=== PATIENT | female | born 1985 | race Hispanic/Latino ===

== ENCOUNTER 2017-01-13 13:18 | Emergency (ER) | payer BC, OTHER ==
[2017-01-13 13:43] VITALS: RESP 16; TEMP 98.8
[2017-01-13] MEDS ORDERED: Sodium Chloride 0.9% 1,000 ML IV STA (14:02)
[2017-01-13 14:17] LABS: URINE APPEARANCE CLEAR (CLEAR); URINE BILIRUBIN NEGATIVE (NEGATIVE); URINE BLOOD LARGE (NEGATIVE); URINE COLOR YELLOW (YELLOW); URINE GLUCOSE (UA) NEGATIVE (NEGATIVE); URINE KETONE TRACE mg/dL (NEGATIVE); URINE LEUKOCYTE ESTERASE NEGATIVE Leu/uL (NEGATIVE); URINE PROTEIN NEGATIVE mg/dL (<30 mg/dL); URINE UROBILINOGEN 0.2 E.U./dL (<1 E.U./dL)
[2017-01-13 14:17] LABS: BASO # 0.02 K/mm3 (0.0-2.0); BASO % 0.2 % (0.0-3.0); EOS # 0.1 (0.0-0.7); EOS % 1.2 % (1.5-5.0); GRAN # 5.84 (1.4-6.5); GRAN % 69.7 % (50.0-68.0); LYMPH % 23.8 % (22.0-35.0); MEAN CELL VOLUME 87.2 fl (80.0-105.0); MEAN CORPUSCULAR HGB CONC 34.4 g/dl (31.0-37.0); MEAN PLATELET VOLUME 9.9 fl (7.0-11.0); MONO # 0.4 (0.1-0.6); MONO % 5.1 % (1.0-6.0); RED CELL DISTRIBUTION WIDTH 12.3 % (11.5-14.5); WHITE BLOOD COUNT 8.4 10^3/ul (4.5-11.0)
[2017-01-13 14:25] LABS: URINE BACTERIA FEW (NEG)
[2017-01-13 14:29] LABS: ALB/GLOB RATIO 1.5 (1.1-1.8); ALKALINE PHOSPHATASE 39 U/L (38-126); ALT/SGPT 28 U/L (7-56); AST/SGOT 27 U/L (14-36); BILIRUBIN,TOTAL 1.4 mg/dL (0.2-1.3); BLOOD UREA NITROGEN 10 mg/dL (7-21); CALCIUM 9.5 mg/dL (8.4-10.5); CARBON DIOXIDE 27 mmol/L (21-33); CHLORIDE 104 mmol/L (98-107); GFR AFRICAN-AMERICAN > 60; GLUCOSE,RANDOM 86 mg/dL (70-110); LIPASE 181 U/L (23-300); POTASSIUM 3.5 mmol/L (3.6-5.0); SODIUM 140 mmol/L (132-148); TOTAL PROTEIN 7.7 g/dL (5.8-8.3)
[2017-01-13] MEDS ORDERED: Morphine 4 mg/ml ISec IVP STA (14:32)
--- NOTE | 2017-01-13 14:34 | ED PDOC ---
Arrival/HPI - General Historian: Patient EM Caveat: Acuity of Condition - History of Present Illness Front/Back of Body, Lg (Color): 1 - RLQ abdominal pain Symptom Onset: Sudden Symptom Course: Worsening Quality: Pressure, Throbbing Severity Level: 8 Activities at Onset: Light Context: Standing <SAMMY NORRIS - Last Filed: 01/13/17 14:22> <Irasema Juarez - Last Filed: 01/13/17 18:16> - General Chief Complaint: Abdominal Pain Time Seen by Provider: 01/13/17 13:48 - History of Present Illness Narrative History of Present Illness (Text): 31F with hx of right ovarian cysts, presents for RLQ abdominal pain x 8hrs. The pain started this morning, while pt was getting ready for work, describes it as constant, throbbing in nature, rates it as 8/10. It gets better with pt leaning forward; walking and sitting up makes the pain worse. Pt has associated nausea and decreased appetite since this AM. Denies fever, chills, vomiting, headache, back pain, dysuria, frequency, hematuria, vaginal discharge, BRBPR, melena, diarrhea/constipation. Pt was sent from her tipple tender office (Dr Pagan) to the ED. Pt is currently having her period, started this AM. However, pt states that her current pain is different from her usual cramps. PMH: right ovarian cysts (diagnosed 10/2016) PSH: ovarian cyst removal, 2006 (unsure which side) ALl: NKA FH: Father, at age 53 from [place]: lives with fiance. Denies alcohol, tobacco, drug use. Works in an office. 01/13/17 14:23 (SAMMY NORRIS) Associated Symptoms (Text): Has associated decreased appetite, nausea. 01/13/17 14:35 (SAMMY NORRIS) Past Medical History - Provider Review Nursing Documentation Reviewed: Yes - Psychiatric Hx Psychophysiologic Disorder: No Hx Substance Use: No - Surgical History Other/Comment: R/T OVARIAN CYST <SAMMY NORRIS - Last Filed: 01/13/17 14:22> Family/Social History - Physician Review Nursing Documentation Reviewed: Yes Smoking Status: Never Smoked Hx Alcohol Use: No Hx Substance Use: No <SAMMY NORRIS - Last Filed: 01/13/17 14:22> Family/Social History: No Known Family HX <Irasema Juarez - Last Filed: 01/13/17 18:16> Allergies/Home Meds <SAMMY NORRIS - Last Filed: 01/13/17 14:22> <JannaIrasema maldonado Joselin - Last Filed: 01/13/17 18:16> Allergies/Adverse Reactions: Allergies No Known Allergies Allergy (Verified 01/13/17 13:37) Home Medications: Home Meds Medication Instructions Recorded Confirmed No Known Home Med 01/13/17 01/13/17 Review of Systems - Physician Review All systems were reviewed & negative as marked: Yes <SAMMY NORRIS - Last Filed: 01/13/17 14:22> Physical Exam Vital Signs Reviewed: Yes Temperature: Afebrile Blood Pressure: Normal Pulse: Tachycardic Respiratory Rate: Normal Appearance: Positive for: Uncomfortable Pain Distress: Moderate Mental Status: Positive for: Alert and Oriented X 3 - Systems Exam Head: Present: Atraumatic, Normocephalic Pupils: Present: PERRL Extroacular Muscles: Present: EOMI Conjunctiva: Present: Normal Pharnyx: Present: Normal Neck: Present: Normal Range of Motion Respiratory/Chest: Present: Clear to Auscultation. No: Accessory Muscle Use Cardiovascular: Present: Normal S1, S2, Tachycardic. No: Murmurs Abdomen: Present: Tenderness, Guarding, McBurney's Point Tender, Rovsing's Sign Present, Other (RLQ tenderness). No: Distention Upper Extremity: Present: Normal Inspection. No: Edema, Tenderness Lower Extremity: Present: Normal Inspection. No: Edema, CALF TENDERNESS, Brenda' s Sign Neurological: Present: GCS=15, Speech Normal Skin: Present: Warm, Dry Psychiatric: Present: Alert, Oriented x 3, Normal Affect, Normal Mood <SAMMY NORRIS - Last Filed: 01/13/17 14:22> Vital Signs Temp Pulse Resp BP Pulse Ox 01/13/17 18:12 86 16 123/72 100 01/13/17 15:37 98 H 16 118/72 98 01/13/17 13:37 98.8 F 112 H 16 114/82 98 Medical Decision Making <JRSAMMY - Last Filed: 01/13/17 14:22> <Irasema Juarez Joselin - Last Filed: 01/13/17 18:16> ED Course and Treatment: 31F with hx of right ovarian cysts, presents for RLQ abdominal pain: - likely 2/2 appendicitis vs diverticulitis vs ovarian etiology vs renal stones vs UTI - CBC, CMP, lipase, HCG, UA - Abd/pelvis with IV contrast - Will consult surgery - F/u results 01/13/17 14:39 01/13/17 14:45 (SAMMY NORRIS) Patient seen by resident and then evaluated by me. Patient is presenting with RLQ pain. She reports that she developed her menses today and then developed isolated RLQ pain. Seen by travel occupational therapist Dr. Pagan who sent patient to ED for further evaluation. Mild tenderness on exam. Labs grossly normal. UA negative for leukocytes and nitrates. Poc negative. CT shows "LOWER THORAX: Unremarkable. LIVER: Unremarkable. No gross lesion or ductal dilatation. GALLBLADDER AND BILE DUCTS: Unremarkable. PANCREAS: Unremarkable. No gross lesion or ductal dilatation. SPLEEN: Unremarkable. ADRENALS: Unremarkable. No mass. KIDNEYS AND URETERS: Unremarkable. No hydronephrosis. No solid mass. VASCULATURE: Unremarkable. No aortic aneurysm. BOWEL: Unremarkable. No obstruction. No gross mural thickening. APPENDIX: Normal appendix. PERITONEUM: Unremarkable. No free fluid. No free air. LYMPH NODES: Unremarkable. No enlarged lymph nodes. BLADDER: Unremarkable. REPRODUCTIVE: Unremarkable. BONES: No acute fracture. OTHER FINDINGS: None. IMPRESSION: Unremarkable contrast enhanced CT of the abdomen and pelvis." 01/13/17 16:35 Spoke to patient's tipple tender. 01/13/17 18:00 U/S shows "UTERUS: Measures 8.8 x 4.2 x 4.6 cm. Normal in size and appearance. No fibroid or other mass lesion seen. ENDOMETRIUM: Measures 10.6 mm in diameter. Unremarkable. CERVIX: No cervical abnormality identified. RIGHT OVARY: Measures 3.5 x 2.5 x 2.8 cm. No solid mass. Normal flow. 1.03 x 0.8 x 1.3 centimeter cyst seen at the right ovary. LEFT OVARY: Measures 2.9 x 2.1 x 2.6 cm. No solid mass. Normal flow. FREE FLUID: No significant free fluid noted. OTHER FINDINGS: None. IMPRESSION: No ultrasound evidence of acute pathology in the uterus and ovaries. 1.3 centimeters cyst at the right ovary likely represent prominent follicle." U/s negative for free fluid but shows ovarian cysts. Patient now has soft NT/ND abdomen. She reports that she feels better and wants to go home. Spoke to Dr. Pagan and he is requesting patient return to his office on Tuesday morning. (Irasema Juarez) - Lab Interpretations Lab Results: 01/13/17 13:49 01/13/17 13:49 Lab Results 01/13/17 14:00: Urine Color Yellow, Urine Appearance Clear, Urine pH 6.0, Ur Specific [place] 1.015, Urine Protein Negative, Urine Glucose (UA) Negative, Urine Ketones Trace H, Urine Blood Large H, Urine Nitrate Negative, Urine Bilirubin Negative, Urine Urobilinogen 0.2, Ur Leukocyte Esterase Negative, Urine RBC 5 - 10, Urine WBC 1 - 3, Ur Epithelial Cells 3 - 4, Urine Bacteria Few 01/13/17 13:49: Sodium 140, Potassium 3.5 L, Chloride 104, Carbon Dioxide 27, Anion Gap 13, BUN 10, Creatinine 0.7, Est GFR ( Amer) > 60, Est GFR (Non- Af Amer) > 60, Random Glucose 86, Calcium 9.5, Total Bilirubin 1.4 H, AST 27, ALT 28, Alkaline Phosphatase 39, Total Protein 7.7, Albumin 4.6, Globulin 3.1, Albumin/Globulin Ratio 1.5, Lipase 181 01/13/17 13:49: WBC 8.4, RBC 4.70, Hgb 14.1, Hct 41.0, MCV 87.2, MCH 30.0, MCHC 34.4, RDW 12.3, Plt Count 193, MPV 9.9, Gran % 69.7 H, Lymph % (Auto) 23.8, [place] % (Auto) 5.1, Eos % (Auto) 1.2 L, Baso % (Auto) 0.2, Gran # 5.84, Lymph # 2.0, [place] # 0.4, Eos # 0.1, Baso # 0.02 - RAD Interpretation Radiology Orders: 01/13/17 13:49 ABD & PELVIS IV CONTRAST ONLY [CT] Stat 01/13/17 16:28 TRANSVAGINAL [US] Stat - Medication Orders Current Medication Orders: Discontinued Medications Sodium Chloride (Sodium Chloride 0.9%) 1,000 mls @ 999 mls/hr IV .Q1H1M STA Stop: 01/13/17 15:02 Last Admin: 01/13/17 14:13 Dose: 999 mls/hr eMAR Start Stop Document 01/13/17 14:13 AD (Rec: 01/13/17 14:13 AD [email or web address] Intravenous Solution Start Date 01/13/17 Start Time 14:13 Ketorolac Tromethamine (Toradol) 30 mg IVP STAT STA Stop: 01/13/17 14:03 Last Admin: 01/13/17 14:13 Dose: 30 mg MAR Pain Assessment Document 01/13/17 14:13 AD (Rec: 01/13/17 14:14 AD [place] [id number]) Pain Reassessment Is this a pain reassessment? No Presence of Pain Presence of Pain Yes Pain Scale Used Pain Scale Used Numeric Location Left, Right or Bilateral Right Upper or Lower Lower Pain Location Body Site Abdomen Description Description Constant Intensity of Pain at present 8 Pain Behavior Guarding Facial Grimacing IVP Administration Document 01/13/17 14:13 AD (Rec: 01/13/17 14:14 AD [email or web address] Charges for Administration # of IVP Administrations 1 Morphine Sulfate (Morphine) 4 mg IVP STAT STA Stop: 01/13/17 14:33 Last Admin: 01/13/17 14:40 Dose: 4 mg MAR Pain Assessment Document 01/13/17 14:40 AD (Rec: 01/13/17 14:41 AD [email or web address] Pain Reassessment Is this a pain reassessment? No Presence of Pain Presence of Pain Yes Pain Scale Used Pain Scale Used Numeric Location Left, Right or Bilateral Right Upper or Lower Lower Pain Location Body Site Abdomen Description Description Constant Intensity of Pain at present 8 Pain Behavior Facial Grimacing IVP Administration Document 01/13/17 14:40 AD (Rec: 01/13/17 14:41 AD [email or web address] Charges for Administration # of IVP Administrations 1 Re-Assess: MATTHEW Pain Assessment Document 01/13/17 15:40 AD (Rec: 01/13/17 17:29 AD [email or web address] Pain Reassessment Is this a pain reassessment? Yes Presence of Pain Presence of Pain No Pain Scale Used Pain Scale Used Numeric Location Left, Right or Bilateral Right Upper or Lower Lower Pain Location Body Site Abdomen Description Intensity of Pain at present 0 Disposition/Present on Arrival - Present on Arrival History of DVT/PE: No History of Uncontrolled Diabetes: No Urinary Catheter: No History of Decub. Ulcer: No History Surgical Site Infection Following: None <SAMMY NORRIS - Last Filed: 01/13/17 14:22> - Present on Arrival Any Indicators Present on Arrival: No - Disposition Have Diagnosis and Disposition been Completed?: Yes Disposition Time: 18:05 Patient Plan: Discharge <Irasema Juarez - Last Filed: 01/13/17 18:16> - Disposition Diagnosis: Ovarian cyst, Abdominal pain Disposition: HOME/ ROUTINE Patient Problems: Current Active Problems Problem Status Onset Ovarian cyst Acute Abdominal pain Acute Condition: GOOD Discharge Instructions (ExitCare): Ovarian Cyst (ED) Additional Instructions: Follow-up with Dr. Pagan on Tuesday morning. Return to ED if condition worsens. Referrals: Linette Jesus MD [Primary Care Provider] - Follow up with primary Marshall Pagan MD [Staff Provider] - Follow up with primary Forms: [employer] (Kinyarwanda)
[2017-01-13] MEDS ORDERED: Iohexol 350 MG/100 ML VIAL ONE (14:37)
--- NOTE | 2017-01-13 16:10 | CT ---
PROCEDURE: CT Abdomen and Pelvis with contrast HISTORY: RLQ pain COMPARISON: None. TECHNIQUE: Contrast dose: 100 cc of Omni 350 Radiation dose: Total exam DLP = 225 mGy-cm. This CT exam was performed using one or more of the following dose reduction techniques: Automated exposure control, adjustment of the mA and/or kV according to patient size, and/or use of iterative reconstruction technique. FINDINGS: LOWER THORAX: Unremarkable. LIVER: Unremarkable. No gross lesion or ductal dilatation. GALLBLADDER AND BILE DUCTS: Unremarkable. PANCREAS: Unremarkable. No gross lesion or ductal dilatation. SPLEEN: Unremarkable. ADRENALS: Unremarkable. No mass. KIDNEYS AND URETERS: Unremarkable. No hydronephrosis. No solid mass. VASCULATURE: Unremarkable. No aortic aneurysm. BOWEL: Unremarkable. No obstruction. No gross mural thickening. APPENDIX: Normal appendix. PERITONEUM: Unremarkable. No free fluid. No free air. LYMPH NODES: Unremarkable. No enlarged lymph nodes. BLADDER: Unremarkable. REPRODUCTIVE: Unremarkable. BONES: No acute fracture. OTHER FINDINGS: None. IMPRESSION: Unremarkable contrast enhanced CT of the abdomen and pelvis.
--- NOTE | 2017-01-13 18:12 | US ---
HISTORY: RLQ pain, eval for torsion COMPARISON: None available. TECHNIQUE: Transabdominal and endovaginal ultrasound examination of the pelvis FINDINGS: UTERUS: Measures 8.8 x 4.2 x 4.6 cm. Normal in size and appearance. No fibroid or other mass lesion seen. ENDOMETRIUM: Measures 10.6 mm in diameter. Unremarkable. CERVIX: No cervical abnormality identified. RIGHT OVARY: Measures 3.5 x 2.5 x 2.8 cm. No solid mass. Normal flow. 1.03 x 0.8 x 1.3 centimeter cyst seen at the right ovary. LEFT OVARY: Measures 2.9 x 2.1 x 2.6 cm. No solid mass. Normal flow. FREE FLUID: No significant free fluid noted. OTHER FINDINGS: None. IMPRESSION: No ultrasound evidence of acute pathology in the uterus and ovaries. 1.3 centimeters cyst at the right ovary likely represent prominent follicle.
[2017-01-13 18:13] VITALS: BP 123/72; PULSE 86; O2SAT 100
== END 2017-01-13 18:27 | disposition home or self-care (01) ==
LOC: ED 13:18
DX: N83.201 Unspecified ovarian cyst, right side (principal); R10.31 Right lower quadrant pain
CPT/HCPCS: 74177; 76830; 80053; 81001; 83690; 85025; 96374; 96375; 99284; J1885; J2270; J7040; Q9967